=== PATIENT | female | born 1985 | race Caucasian/White ===

== ENCOUNTER 2022-03-08 05:59 | Observation (INO) ==
--- NOTE | 2022-03-02 15:58 | Anesthesiology Consultation ---
Date of Service March 02, 2022 Assessment & Plan (1) Encounter for pre-operative examination: - Check test, BSG AM DOS - COVID screening: Per assessment on 03/02: No known COVID-19 positive contacts or current COVID-19 related symptoms. Travel screen negative. At surgeon discretion if preop Covid testing being done. Patient was Covid positive last week 11/2021 ([facility]). Symptoms at time: headache, cough, cold symptoms > resolved. Awaiting 11/2021 Covid positive report from [facility]. Chart Review Chart Review: Patient NOT seen in Pre Admission Testing History Surgery Operation Date: 03/08/22 07:45 Proposed Procedures p L4-L5 Decompression with Possible Coflex, Spinal Cord Monitoring - Sebastián Caban DO Height/Weight Height: 6 ft Weight: 154.221 kg Allergies Allergy/AdvReac Type Severity Reaction Status Date / Time No Known Allergies Allergy Verified 03/02/22 12:45 Medications Home Medications Medication Instructions Recorded Confirmed Last Taken amlodipine 2.5 mg tablet 2.5 mg PO QPM 03/02/22 03/02/22 Unknown biotin 1 mg tablet 1 mg PO QPM 03/02/22 03/02/22 Unknown docusate sodium 100 mg capsule 100 mg PO QPM 03/02/22 03/02/22 Unknown (Colace) empagliflozin 25 mg tablet 25 mg PO QPM 03/02/22 03/02/22 Unknown (Jardiance) glimepiride 2 mg tablet (Amaryl) 2 mg PO QAM 03/02/22 03/02/22 Unknown meloxicam 7.5 mg tablet 7.5 mg PO QPM 03/02/22 03/02/22 Unknown spironolactone 25 mg tablet 25 mg PO QPM 03/02/22 03/02/22 Unknown zinc 10 mg tablet 10 mg PO QPM 03/02/22 03/02/22 Unknown zolpidem 10 mg tablet (Ambien) 10 mg PO HS PRN sleep 03/02/22 03/02/22 Unknown Past Medical History Medical History (Updated 03/02/22 @ 15:56 by Michelle Duckworth) DDD (degenerative disc disease) Diabetes History of COVID-19 last week 11/2021 ([facility]) durán, cough, cold symptoms > resolved HTN (hypertension) Hx of sebaceous cyst upper back Morbid obesity Past Family History Family History Other No family history of adverse response to anesthesia Past Surgical History Surgical History History of carpal tunnel release History of tonsillectomy and adenoidectomy Hx of section x2 Hx of colonoscopy Hx of laparoscopy x2 Social History Smoking Status: Current every day smoker tobacco type: cigarettes Smoking cigarettes per day: 3 PER DAY -ADVISED Do You Dip or Chew Tobacco: No Hx Alcohol Use: No Hx Substance Use: No substance use type: does not use Lab Results Anesthesia Preop Results Results Anesthesia Widget: WBC 8.93 K/ul (4.8-10.8) 02/23/22 Hgb 13.9 g/dl (12.0-16.0) 02/23/22 Hct 38.6 % (34.1-44.9) 02/23/22 Plt 199 K/uL (130-400) 02/23/22 Na 136 mmol/L (136-145) 02/23/22 K 4.0 mmol/L (3.5-5.1) 02/23/22 Cl 104 mmol/L (98-107) 02/23/22 CO2 26 mmol/L (21-32) 02/23/22 BUN 13 mg/dl (6-23) 02/23/22 Creat 0.52 mg/dl (0.6-1.2) L 02/23/22 Glucose Level 258 mg/dl (70-99(Fasting)) H 02/23/22 PT 10.2 Seconds (9.0-12.0) 02/23/22 PTT 24.5 Seconds (21.0-31.0) 02/23/22 INR 1.0 (0.9-1.1) 02/23/22 Urine Color Yellow 02/23/22 Urine Appearance Clear (Clear) 02/23/22 Urine pH 7.0 (4.5-7.5) 02/23/22 Urine Specific [place] 1.024 (1.000-1.030) 02/23/22 Urine Protein Negative (Negative) 02/23/22 Urine Glucose (UA) 3+ (Negative) H 02/23/22 Urine Ketones Negative (Negative) 02/23/22 Urine Blood Negative (Negative) 02/23/22 Urine Nitrite Negative (Negative) 02/23/22 Urine Bilirubin Negative (Negative) 02/23/22 Urine Urobilinogen Negative (Negative) 02/23/22 Urine Leukocyte Esterase Negative (Negative) 02/23/22 Blood Type A Positive 02/23/22 Antibody Screen NEGATIVE 02/23/22 Testing Laboratory Results Surgeon's office made aware of elevated glucose* Electrocardiogram Date: 02/23/22 Findings: + NSR @ (80) Chest X-Ray Date: 02/23/22 Findings: + NAD
[2022-03-08] MEDS ORDERED: GABAPENTIN 900 MG DOSE PO SCH (06:00)
[2022-03-08] MEDS ORDERED: LR 15ML/HR IV SCH (06:00)
[2022-03-08] MEDS ORDERED: ACETAMINOPHEN 500 MG TAB PO SCH (06:00)
[2022-03-08] MEDS ORDERED: CeleBREX 200 MG CAP PO SCH (06:00)
[2022-03-08] MEDS ORDERED: fentaNYL citrate 100 MCG/2 ML VIAL ONE (07:09)
[2022-03-08] MEDS ORDERED: MIDAZOLAM HCL 1 MG/ML 2ML VIAL ONE (07:09)
[2022-03-08] MEDS ORDERED: MoRPHine SULFATE 10 MG/ML CARP/VIAL IV PRN (07:28)
[2022-03-08] MEDS ORDERED: fentaNYL citrate 100 MCG/2 ML VIAL IV PRN (07:28)
[2022-03-08] MEDS ORDERED: MEPERIDINE HCL 25 MG/ML CARP/VIAL IV PRN (07:28)
[2022-03-08] MEDS ORDERED: ONDANSETRON INJ 2 MG/ML 2 ML VIAL IV PRN ×2 (07:28→10:15)
[2022-03-08] MEDS ORDERED: ATROPINE SULFATE 0.1 MG/ML 10ML SYR IV PRN (07:28)
[2022-03-08] MEDS ORDERED: ePHEDrine sulfate 50 MG/ML AMP IV PRN (07:28)
--- NOTE | 2022-03-08 07:38 | History & Physical Bridge Note ---
Date of Service March 08, 2022 History & Physical Bridge Note I have examined the patient, reviewed the History & Physical and in the interval since the performance of the History & Physical I have noted the following changes of clinical significance: no changes noted
--- NOTE | 2022-03-08 07:39 | History & Physical Report ---
Date of Service March 08, 2022 Assessment & Plan (1) Neurogenic claudication due to lumbar spinal stenosis: Plan: L4-5 decompression with possible Coflex History of Present Illness Chief Complaint: Back and leg pain Primary Care Provider: Freda Mitchell MD This 37-year-old female presents with chronic persistent back and leg pain. Failing since course of nonoperative care she is here for surgical invention. Allergies Allergy/AdvReac Type Severity Reaction Status Date / Time No Known Allergies Allergy Verified 03/08/22 06:32 Home Medications Medication Instructions Recorded Confirmed Type amlodipine 2.5 mg tablet 2.5 mg PO QPM 03/02/22 03/08/22 History biotin 1 mg tablet 1 mg PO QPM 03/02/22 03/08/22 History docusate sodium 100 mg capsule 100 mg PO QPM 03/02/22 03/08/22 History (Colace) empagliflozin 25 mg tablet 25 mg PO QPM 03/02/22 03/08/22 History (Jardiance) glimepiride 2 mg tablet (Amaryl) 2 mg PO QAM 03/02/22 03/08/22 History meloxicam 7.5 mg tablet 7.5 mg PO QPM 03/02/22 03/08/22 History spironolactone 25 mg tablet 25 mg PO QPM 03/02/22 03/08/22 History zinc 10 mg tablet 10 mg PO QPM 03/02/22 03/08/22 History zolpidem 10 mg tablet (Ambien) 10 mg PO HS PRN sleep 03/02/22 03/08/22 History Past Med/Surg History Medical History (Updated 03/08/22 @ 07:39 by Sebastián Caban DO) DDD (degenerative disc disease) Diabetes History of COVID-19 last week 11/2021 ([facility]) durán, cough, cold symptoms > resolved HTN (hypertension) Hx of sebaceous cyst upper back Morbid obesity Surgical History History of carpal tunnel release History of tonsillectomy and adenoidectomy Hx of section x2 Hx of colonoscopy Hx of laparoscopy x2 Family History Other No family history of adverse response to anesthesia Social History Smoking Status: Current every day smoker Cigarettes Per Day: 3 PER DAY -ADVISED; Second Hand Exposure: No; Do You Dip or Chew Tobacco: No; Tobacco Cessation Education Requested by Patient: No Hx Alcohol Use: No Hx Substance Use: No Preferred Language: Polish Communication Ability: Effective 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
[2022-03-08] MEDS ORDERED: BUPIVACAINE/EPINEPHRINE 0.25% 1:200,000 30 ML VIAL ONE (07:41)
[2022-03-08] MEDS ORDERED: HYDROmorphone INJ 2 MG/ML SYR/VIAL ONE (08:20)
[2022-03-08] MEDS ORDERED: DEXAMETHASONE SOD INJ 4 MG/ML VIAL ONE (08:24)
[2022-03-08] MEDS ORDERED: GLYCOPYRROLATE 0.2 MG/ML VIAL ONE (08:24)
[2022-03-08] MEDS ORDERED: ROCURONIUM BROMIDE 10 MG/ML 5 ML VIAL IV ONE (08:24)
[2022-03-08] MEDS ORDERED: LARYING-O-JET KIT (LTA) ONE (08:24)
[2022-03-08] MEDS ORDERED: PROPOFOL IV EMULSION 10 MG/ML 20 ML VIAL IV ONE ×2 (08:24→08:54)
[2022-03-08] MEDS ORDERED: LIDOCAINE 2% MPF LOCAL 5 ML VIAL INFIL ONE (08:24)
[2022-03-08] MEDS ORDERED: ONDANSETRON INJ 2 MG/ML 2 ML VIAL ONE (08:24)
[2022-03-08] MEDS ORDERED: NEOSTIGMINE METHYLSULFATE 1 MG/ML 10ML VIAL ONE (08:24)
[2022-03-08] MEDS ORDERED: FLOSEAL HEMOSTATIC MATRIX 10ML TOP ONE (08:34)
[2022-03-08] MEDS: ceFAZolin 330 MG/ML 1 GM VIAL ONE ×2 (08:34→08:53)
--- NOTE | 2022-03-08 09:06 | Operative Report ---
Post Operative Report Pre & Post Diagnosis Operation Date: 03/08/22 07:45 Pre-Op Diagnosis: Neurogenic Claudication due to Lumbar Spinal Stenosis Post-Op Diagnosis: Neurogenic Claudication due to Lumbar Spinal Stenosis I identified the patient and participated in the time-out.: Yes Procedure Operation Date: 03/08/22 07:45 Actual Procedures #1 lumbar decompression bilateral medial facetectomies L4-5. #2 placement of 14 mm Coflex at the L4-5 interspace. Surgeon Sebastián Caban, DO Demolition Specialist None Estimated Blood Loss 10 Findings See Below Patient is 6 feet tall weighing over 153 kg with a BMI in excess of 45. Patient's body habitus did contribute to significant technical difficulty required deepest retractors and longer instruments in order to perform her procedure. This added at least 50% increased operative time. Specimens None Indications This is a 37-year-old female who presents above-mentioned diagnosis after failed course of nonoperative care is here for the above-mentioned procedure. Description of Procedure Patient was met with identified informed consent obtained. Patient was then taken to the operative suite underwent a patient placed in a prone position the Sebas table top of the Jero frame. All bony prominences well-padded eyes inspected to ensure no external pressure placed upon the. This point the lumbar spine was prepped and draped in a sterile fashion. With the assistance of fluoroscopy identify the L4-5 disc base and sharp dissection with assistance of Bovie cautery then formed until exposing the the L4-5 interlaminar region. Self-retaining tractors placed. Then formed a midline decompression including bilateral medial facetectomies tickly on the right addressing severe lateral recess subarticular stenosis. After this is complete a 14 mm Coflex was tapped in position and crimped into place. The incision was then copiously irrigated with 15 round ART drain inserted. It was then closed with 1 Vicryl fascia 2-0 Vicryl subcutaneously and 4 Monocryl for fascial closure. Steri-Strip sterile dressing placed. Patient waken taken to PACU in stable condition. I attest to the content of the Intraoperative Record and any orders documented therein. Any exceptions are noted below.
--- NOTE | 2022-03-08 09:33 | Fluoroscopy Report ---
INTRAOPERATIVE RADIOGRAPH CLINICAL HISTORY: L4-L5 spinal surgery. Fluoroscopy time: 9 seconds. FINDINGS: A single spot fluoroscopic view of the lower lumbar spine is present. A Coflex device is se en posteriorly at L4-L5. IMPRESSION: Intraoperative image from lumbar spinal surgery as above. Electronically signed by: Girma Villaseñor M.D. 03/08/2022 9:32 AM
--- NOTE | 2022-03-08 09:44 | Anesthesiology Progress Note ---
Date of Service March 08, 2022 Anesthesia Post Procedure Vital Signs Vital Signs: Temp Pulse Pulse Resp BP Pulse Ox O2 Del Method 03/08/22 09:40 78 16 149/68 H 95 Nasal Cannula 03/08/22 09:30 77 12 143/69 H 100 Oxymask 03/08/22 09:20 89 14 131/78 100 Oxymask 03/08/22 09:13 36.4 C L 86 15 150/68 H 100 Oxymask 03/08/22 06:38 36.8 C 84 20 126/79 95 Room Air O2 Flow Rate 03/08/22 09:40 4 03/08/22 09:30 12 03/08/22 09:20 12 03/08/22 09:13 12 03/08/22 06:38 Pain Intensity Bilateral Leg: Pain Intensity: 7 Back: Pain Intensity: 1 Transfer of Care Handoff Completed per policy Notes Mental Status: alert / awake / arousable Patient Amnestic to Procedure: Yes Nausea / Vomiting: adequately controlled Pain: adequately controlled Airway Patency, RR, SpO2: stable & adequate BP & HR: stable & adequate Hydration State: stable & adequate Anesthetic Complications: no major complications apparent and Pt Satisfied with anesthetic care
[2022-03-08] MEDS ORDERED: NALOXONE HCL 0.4 MG/1 ML VIAL/CARP IV PRN (10:15)
[2022-03-08] MEDS ORDERED: hydrOXYzine HCl 25 MG TAB PO PRN (10:15)
[2022-03-08] MEDS ORDERED: LORazepam 0.5 MG in SYRINGE 0 ML IV PRN (10:15)
[2022-03-08] MEDS ORDERED: ONDANSETRON 4 MG OD TAB PO PRN (10:15)
[2022-03-08] MEDS ORDERED: PROMETHAZINE HCL 12.5 MG in SODIUM CHLORIDE 0.9% 50 ML IV PRN (10:15)
[2022-03-08] MEDS ORDERED: MAGNESIUM HYDROXIDE SUSP 30 ML UDC PO PRN (10:15)
[2022-03-08] MEDS ORDERED: ZOLPIDEM TARTRATE 10 MG TAB PO PRN (10:15)
[2022-03-08] MEDS ORDERED: LORazepam 0.5 MG TAB PO PRN (10:15)
[2022-03-08] MEDS ORDERED: bisacodyL 10 MG SUPP PR PRN (10:15)
[2022-03-08] MEDS ORDERED: METOCLOPRAMIDE HCL INJ 5 MG/ML 2 ML VIAL IV PRN (10:15)
[2022-03-08] MEDS ORDERED: traMADol HCL 50 MG TABLET PO PRN (10:15)
[2022-03-08] MEDS ORDERED: FAMOTIDINE 20 MG TAB PO PRN (10:15)
[2022-03-08] MEDS ORDERED: ACETAMINOPHEN 500 MG TAB PO PRN (10:15)
[2022-03-08] MEDS ORDERED: SOD PHOSPHATE/SOD BIPHOSPHATE ENEMA 132 ML BTL PR PRN (10:15)
[2022-03-08] MEDS ORDERED: ALUMINUM/MAGNESIUM SUSP 30 ML UDC PO PRN (10:15)
[2022-03-08] MEDS ORDERED: diphenhydrAMINE Capsule 25 MG CAP PO PRN (10:15)
[2022-03-08] MEDS ORDERED: HYDROmorphone INJ 0.5 MG/0.5 ML SYR IV PRN (10:15)
[2022-03-08] MEDS ORDERED: PHARMACY GLYCEMIC MGMT CONSULT PRN (10:15)
[2022-03-08] MEDS ORDERED: ACETAMINOPHEN 1,000 MG/100 ML VIAL IV PRN (10:15)
[2022-03-08] MEDS: HYDROmorphone INJ 1 MG/ML SYRINGE IV PRN ×3 (10:31→20:57)
[2022-03-08] MEDS: SODIUM CHLORIDE 0.9% 1000ML 1,000 ML IV SCH ×2 (10:31→18:09)
--- NOTE | 2022-03-08 11:08 | Hospitalist Consultation ---
Date of Consultation March 08, 2022 Assessment & Plan (1) Neurogenic claudication due to lumbar spinal stenosis: 03/08/22 L4-L5 Decompression with Coflex Surgeon: Sebastián Caban Doing well post op with only edith incisional pain (2) Diabetes: Pt has glycemic consult, ortho had ordered glimepiride and Jardiance, I moved Jardiance to 03/09, I expect glycemic consult may consider stopping glimepiride or if not just have a very loose sliding scale (3) HTN (hypertension): spironolactone will be moved to 03/09/22 Plan DVT prevention is scd History of Present Illness Attending Physician: Sebastián Caban, DO History of Present Illness 37-year-old female postop medical management consult. Patient is does have diabetes on glimepiride and Jardiance. She is a glycemic management consult in place. Postoperatively she is resolution of the neuropathy of her bilateral lower extre mities only has some mild perioperative surgical site pain. She is awake and alert her significant other is at the bedside she has no immediate concerns or complaints Allergies Allergy/AdvReac Type Severity Reaction Status Date / Time No Known Allergies Allergy Verified 03/08/22 06:32 Home Medications Medication Instructions Recorded Confirmed Type amlodipine 2.5 mg tablet 2.5 mg PO QPM 03/02/22 03/08/22 History biotin 1 mg tablet 1 mg PO QPM 03/02/22 03/08/22 History docusate sodium 100 mg capsule 100 mg PO QPM 03/02/22 03/08/22 History (Colace) empagliflozin 25 mg tablet 25 mg PO QPM 03/02/22 03/08/22 History (Jardiance) glimepiride 2 mg tablet (Amaryl) 2 mg PO QAM 03/02/22 03/08/22 History meloxicam 7.5 mg tablet 7.5 mg PO QPM 03/02/22 03/08/22 History spironolactone 25 mg tablet 25 mg PO QPM 03/02/22 03/08/22 History zinc 10 mg tablet 10 mg PO QPM 03/02/22 03/08/22 History zolpidem 10 mg tablet (Ambien) 10 mg PO HS PRN sleep 03/02/22 03/08/22 History Patient History Medical History (Updated 03/08/22 @ 11:04 by Narendra Jackson MD) DDD (degenerative disc disease) Diabetes History of COVID-19 last week 11/2021 ([facility]) durán, cough, cold symptoms > resolved HTN (hypertension) Hx of sebaceous cyst upper back Morbid obesity Surgical History History of carpal tunnel release History of tonsillectomy and adenoidectomy Hx of section x2 Hx of colonoscopy Hx of laparoscopy x2 Family History Other No family history of adverse response to anesthesia Social History Smoking Status: Current every day smoker Cigarettes Per Day: 3 PER DAY -ADVISED; Second Hand Exposure: No; Do You Dip or Chew Tobacco: No; Tobacco Cessation Education Requested by Patient: No Hx Alcohol Use: No Hx Substance Use: No Preferred Language: [place] Communication Ability: Effective 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: No Beliefs That Will Affect Care: None Current Living Situation: Spouse and Family Other Information That Helps Us Care for You: No Feels Safe at Home: Yes Safety Concerns: Feels Safe At This Time Assistive Devices: None Review of Systems Review of Systems: Mild distress and fatigue no headache, no visual changes no speech or swallowing issues no chest pain, pressure or palpitations no shortness of breath, cough or wheezes no abdominal pain, nausea or vomiting, diarrhea or constipation no dysuria, hematuria or frequency no focal joint pain or swelling edith incisional back pain, no CVA tenderness or radicular pain no bruising, bleeding or rashes no focal signs of weakness or numbness or altered sensation no complaints of anxiety or depression.. Physical Exam Physical Exam: The patient appeared well nourished and normally developed. Vital signs as documented. Head exam is normocephalic atraumatic Neck is without JVD, thyromegaly, or carotid bruits. Lungs are clear to auscultation, no focal loss of breath sounds Cardiac exam, Rhythm is regular.. No murmurs, rubs or gallops. Abdominal exam reveals normal bowel sounds, soft non tender, no masses Extremities are nonedematous and both pedal pulses are present Neurologic exam is alert and oriented, no focal loss of sensation Psychologically is without concerns for anxiety or depression.. Results & Data Results & Data ([facility]) Vital Signs (Past 12 Hours) Vital Signs Temp Pulse Pulse Resp BP Pulse Ox O2 Del Method 03/08/22 11:02 98.6 F 89 16 131/73 98 Nasal Cannula 03/08/22 10:30 98.6 F 74 16 130/78 96 Nasal Cannula 03/08/22 10:00 98.8 F 79 16 136/77 100 Nasal Cannula 03/08/22 09:50 97.0 F L 88 16 135/82 98 Nasal Cannula 03/08/22 09:40 78 16 149/68 H 95 Nasal Cannula 03/08/22 09:30 77 12 143/69 H 100 Oxymask 03/08/22 09:20 89 14 131/78 100 Oxymask 03/08/22 09:13 97.5 F L 86 15 150/68 H 100 Oxymask 03/08/22 06:38 98.2 F 84 20 126/79 95 Room Air O2 Flow Rate 03/08/22 11:02 4 03/08/22 10:30 4 03/08/22 10:00 4 03/08/22 09:50 4 03/08/22 09:40 4 03/08/22 09:30 12 03/08/22 09:20 12 03/08/22 09:13 12 03/08/22 06:38 PG Care Time/CCT Total # of Minutes Spent Total Time Spent with Patient: Total time spent is greater than 50% in coordination of care (as documented) at patient's floor/unit and/or counseling patient: Coding Level of Care Code 28780 Inpt Consult Level 2 Diagnoses Neurogenic claudication due to lumbar spinal stenosis M48.062 Diabetes E11.9 HTN (hypertension) I10
[2022-03-08] MEDS ORDERED: DEXTROSE 50% 50 ML SYRINGE IV PRN (11:15)
[2022-03-08] MEDS ORDERED: CARBOHYDRATES FOR HYPOGLYCEMIA PO PRN (11:15)
[2022-03-08] MEDS ORDERED: GLUCAGON FOR INJ 1 MG VIAL IM PRN (11:15)
[2022-03-08] MEDS ORDERED: GLUCOSE 10 TAB/TUBE PO PRN (11:15)
[2022-03-08] MEDS ORDERED: GLUCOSE 40% GEL 15 GM TUBE PO PRN (11:15)
[2022-03-08] MEDS ORDERED: LANTUS PER UNIT CHARGE SQ ONE ×2 (11:30→21:00)
[2022-03-08] MEDS: INSULIN ASPART PER UNIT SC SCH ×3 (13:07→21:11)
[2022-03-08] MEDS ORDERED: PNEUMOCOCCAL POLYSACCHARIDES 25 MCG/0.5 ML VIAL/SYR IM ONE (14:51)
--- NOTE | 2022-03-08 14:53 | Pharmacy Report ---
Pharmacy Glycemic Short Note 2 - Date of Service March 08, 2022 - Glycemic Short BSG Results (Last 24 hours): 03/08/22 03/08/22 03/08/22 06:28 09:16 12:08 POC Glucose 167 H 188 H 239 H OUTPATIENT ANTIDIABETIC REGIMEN: * Jardiance 25 mg PO qAM * Amaryl 2 mg PO daily * HbA1C = ORDERED (patient reports as 9.2% in December of this year) ASSESSMENT: * Ms Silverio is a 37 y/o F with a PMH of T2DM on two oral medications who presents for spinal surgery. Patient received dexamethasone 12 mg IV during surgery. * Preop BSG was 167 mg/dL and post-op BSG was 239 mg/dL. * Lantus 40 units SQ x 1 after surgery as 0.4 units/kg of adjusted body weight. Will give additional 20 units for full weight-based stress of 3 if BSG > 200 mg/dL at HS. * Novolog weight-based stress of 3 for steroid hyperglycemia. Overnight checks added to ensure adequate coverage. * Hold oral medications. PLAN FOR INPATIENT GLYCEMIC CONTROL: * Hold outpatient oral diabetes medications * Basal insulin * Lantus 40 units SQ x 1 then 20 units HS if BSG > 200 mg/dL * Bolus insulin * NovoLog per scale ACHS or Q6hrs while NPO * Goal Range: Low 110 mg/dL - High 140 mg/dL * Correction Factor: 15 mg/dL/unit * Nutritional / Prandial insulin per carb ratio of 1 unit per 4 grams CHO consumed
[2022-03-08] MEDS: ceFAZolin 2000MG 2,000 MG/15 ML SYR IV SCH (15:46)
[2022-03-08] MEDS ORDERED: ZINC SULFATE 220 MG CAPSULE PO SCH (21:00)
[2022-03-08] MEDS ORDERED: DOCUSATE SODIUM/SENNA 50/8.6MG TAB PO SCH (21:00)
[2022-03-08] MEDS ORDERED: NON-FORMULARY MEDICATION (Biotin 1 mg Tablet) PO SCH (21:00)
[2022-03-08] MEDS ORDERED: SPIRONOLACTONE 25 MG TAB PO SCH (21:00)
[2022-03-08] MEDS ORDERED: amLODIPine BESYLATE 5 MG TAB PO SCH (21:00)
[2022-03-09] MEDS: ceFAZolin 2000MG 2,000 MG/15 ML SYR IV SCH (00:30)
[2022-03-09] MEDS: SODIUM CHLORIDE 0.9% 1000ML 1,000 ML IV SCH (00:30)
[2022-03-09] MEDS: INSULIN ASPART PER UNIT SC SCH ×3 (00:44→09:02)
[2022-03-09] MEDS: HYDROmorphone INJ 1 MG/ML SYRINGE IV PRN (01:29)
[2022-03-09] MEDS ORDERED: COUGH DROP (SUGAR FREE) LOZ 24 LOZ/1 BOX BUCCAL PRN (04:46)
[2022-03-09] MEDS ORDERED: COUGH DROP (SUGAR FREE) LOZ 24 LOZ/1 BOX BUCCAL ONE (04:53)
[2022-03-09] MEDS: oxyCODONE HCL IR 5 MG TAB (IMMEDIATE RELEASE) PO PRN ×2 (05:26→09:19)
[2022-03-09] MEDS ORDERED: POLYETHYLENE (MIRALAX) 17 GM PACK PO SCH (06:00)
[2022-03-09] MEDS ORDERED: GLIMEPIRIDE 2 MG TAB PO SCH (07:30)
--- NOTE | 2022-03-09 08:35 | Communication Note ---
Date of Service: March 09, 2022 Medicine signed off after chart rounding. Please contact me via morenita Ott if you have any questions or concerns.
--- NOTE | 2022-03-09 09:34 | Discharge Summary ---
Date of Service March 09, 2022 Admission HPI Per Admitting Provider This 37-year-old female presents with chronic persistent back and leg pain. Failing since course of nonoperative care she is here for surgical invention. Principal Diagnosis Lumbar spinal stenosis with radiculopathy Discharge Data Allergies Allergy/AdvReac Type Severity Reaction Status Date / Time No Known Allergies Allergy Verified 03/08/22 06:32 Consultations 03/08/22 10:15 Consult Hospitalist Routine Procedures Performed Operation Date: 03/08/22 07:45 Actual Procedures p L4-L5 Decompression with Coflex(Not Applicable) - Sebastián Caban DO Ordered Studies 03/08/22 07:45 FL spine 1V any level Routine Hospital Course (1) Neurogenic claudication due to lumbar spinal stenosis: Patient underwent lumbar decompression tolerated procedure well went to the orthopedic for postoperative postoperative. Postop day 1 she was up and ambulating ART drain decreased appropriately. Pain well controlled. Excellent strength testing. Subsequently discharged home. Discharge orders instructions from the chart for further review. Total Time Total Time Spent Total Time Spent (In Minutes): 20 minutes Discharge Plan Discharge Items Patient Disposition: Home - Self-Care Reason For Visit: Disc Displacement, Lumbar Region Discharge Diagnosis: Lumbar spinal stenosis with radiculopathy Activity: As commented below Non-emergency contact: Primary Care Provider Call non-emergency contact if: you have any medication questions Follow-up/Referrals: Freda Mitchell MD [Primary Care Provider] - Diet: Regular Addtl Attending Provider Instructions: ACTIVITY RECOMMENDATIONS: ACTIVITY RECOMMENDATIONS: SELF CARE INSTRUCTIONS AFTER A LAMINECTOMY 1. No prolonged sitting (less than 30 minutes for the first 3 weeks after surgery). 2. No bending, lifting more than 5 pounds, or twisting (roll like a log when turning in bed). 3. You may shower 3 days after surgery if no drainage from wound. Thoroughly dry wound. Do not soak in the tub. 4. Please walk as much as you can for exercise. Gradually increase the dista nce that you walk as your endurance increases. 5. You may drive in 7-10 days if you are comfortable and no longer requiring pain medications. SPECIAL CARE INSTRUCTIONS: VERY IMPORTANT TO READ AND REVIEW A. Your surgical incision has been closed with a cosmetic suture under the skin that will dissolve in about 6 weeks. In 14 days, you can use a pair of clean scissors and cut the suture that is left outside of the skin at the ends of your incision. B. Complications are uncommon, but please contact us if you have any signs or symptoms of: 1. wound infection (fever higher than 102.5 degrees F, redness, separation of wound, drainage, or increasing pain from the incision) 2. blood clots in legs (pain, swelling, redness and warmth in legs) 3. urinary tract infection (fever higher than 102.5 degrees, burning upon urination or increased frequency of urination) 4. nerve problems (inability to walk on your toes or heels, numbness, loss of bowel or bladder control) 5. any other symptoms that concern you. C. Please call the office at if you have any concerns or questions about your operation or recovery. MANAGING PAIN AFTER SPINAL SURGERY 1. Narcotic medication is intended for short-term use and will be provided for surgical pain. Surgical pain usually lasts for a period of 4-6 weeks. Narcotic medication includes Percocet, Vicodin, Darvocet, Tylenol #3 or Lortab. 2. Longer-term pain is more appropriately treated with non-narcotic medication such as Tylenol ES. 3. Muscle spasm is not appropriately treated with narcotics. Muscle relaxers such as Soma, Flexeril or Skelaxin can be used along with Tylenol ES. 4. Remember that we all live with some "aches and pains". This is not unusual or uncommon after an injury or as we get older. 5. We will provide appropriate medication within the normal guidelines of their prescribed use. We will also be very cautious and aware of potential abuse and extended duration of patients' medication needs. 6. Please allow 2-3 days to process refills. Prescriptions will not be mailed but must be picked up at the office. FOLLOW UP VISIT: Keep your scheduled follow-up appointment. Any questions, please call the office at . Pending Studies at Discharge: No Stand-Alone Forms: My [employer], Smoking Cessation Medications and DC Order Prescriptions: New tramadol 50 mg tablet 50 mg PO Q6H PRN (Reason: pain, moderate) Qty: 20 0RF oxycodone 5 mg tablet 5 mg PO Q6H PRN (Reason: pain, severe) Qty: 20 0RF Continued amlodipine 2.5 mg Tablet 2.5 mg PO QPM spironolactone 25 mg Tablet 25 mg PO QPM glimepiride [Amaryl] 2 mg Tablet 2 mg PO QAM Rx Instructions: administer with breakfast meloxicam 7.5 mg Tablet 7.5 mg PO QPM docusate sodium [Colace] 100 mg Capsule 100 mg PO QPM zolpidem [Ambien] 10 mg Tablet 10 mg PO HS PRN (Reason: sleep) zinc 10 mg Tablet 10 mg PO QPM biotin 1 mg Tablet 1 mg PO QPM Jardiance 25 mg Tablet 25 mg PO QPM Discharge Orders: Discharge Order (Routine); Ordered 03/09/22 Ordered By: Sebastián Caban Admission Data Admit Date/Time: 03/08/22 09:08 Attending Provider: Sebastián Caban Admit Provider: Sebastián Caban Primary Care Provider: Freda Mitchell Other Providers: Narendra Jackson
[2022-03-09] MEDS ORDERED: SPIRONOLACTONE 25 MG TAB PO SCH (21:00)
[2022-03-09] MEDS ORDERED: NON-FORMULARY MEDICATION (Empagliflozin [Jardiance] 25 MG) PO SCH (21:00)
[2022-03-10 07:23] LABS: Estimated Average Glucose 206 mg/dl; Hemoglobin A1C 8.8 % (4.5-5.6)
== END 2022-03-09 12:10 | disposition home or self-care (01) ==
LOC: 3E 05:59 → ASU 05:59